=== PATIENT | female | born 1995 | race Caucasian/White ===

== ENCOUNTER 2017-11-18 21:27 | Emergency (ER) | payer OTHER ==
[~2017-11-18] VITALS: Ht 154.9 cm; Wt 47.8 kg
[2017-11-18 21:43] VITALS: BP 122/60; PULSE 97; RESP 16; TEMP 98.7; O2SAT 96
[2017-11-19] MEDS ORDERED: CITA20TA4 PO (00:28)
[2017-11-19] MEDS ORDERED: NAPR500T2 PO (00:28)
[2017-11-19] MEDS ORDERED: MAXA5TAB2 PO (00:28)
== END 2017-11-18 23:30 | disposition left against medical advice (07) ==
LOC: PHED 21:27
DX: R53.1 Weakness (principal); R51 Headache; Z53.21 Procedure and treatment not carried out due to patient leaving prior to being seen by health care provider
CPT/HCPCS: 99281